=== PATIENT | female | born 1980 | race Asian ===

== ENCOUNTER 2019-12-24 13:45 | Emergency (ER) | payer OTHER ==
[2019-12-24 13:52] VITALS: BP 153/95; PULSE 74; TEMP 97; BMI 27.8
== END 2019-12-24 15:19 | disposition home or self-care (01) ==
LOC: JERFT 13:45
DX: S62.632D Displaced fracture of distal phalanx of right middle finger, subsequent encounter for fracture with routine healing (principal)
CPT/HCPCS: 73130-TC-LT-FY; 99283-25